=== PATIENT | female | born 1945 | race Two or more races ===

== ENCOUNTER 2019-08-04 11:08 | Outpatient (CLI) | payer OTHER | END 2019-08-04 12:07 | disposition home or self-care (01) | LOC: LAB 11:08 | DX: E78.2 Mixed hyperlipidemia (principal); E11.65 Type 2 diabetes mellitus with hyperglycemia; E11.22 Type 2 diabetes mellitus with diabetic chronic kidney disease; E11.21 Type 2 diabetes mellitus with diabetic nephropathy; Z12.11 Encounter for screening for malignant neoplasm of colon; N39.0 Urinary tract infection, site not specified; D68.8 Other specified coagulation defects; D64.89 Other specified anemias; E03.8 Other specified hypothyroidism; E55.9 Vitamin D deficiency, unspecified ==

== ENCOUNTER 2020-07-08 09:01 | Outpatient (CLI) | payer OTHER | END 2020-07-08 11:30 | disposition home or self-care (01) | LOC: LAB 09:01 | PROVIDERS: ATTEND Specialist | DX: M48.44 Fatigue fracture of vertebra, thoracic region (principal); M48.44XA Fatigue fracture of vertebra, thoracic region, initial encounter for fracture; J45.998 Other asthma; H25.011 Cortical age-related cataract, right eye; D68.8 Other specified coagulation defects; Z20.828 Contact with and (suspected) exposure to other viral communicable diseases; Z03.818 Encounter for observation for suspected exposure to other biological agents ruled out ==

== ENCOUNTER → 2020-08-08 11:58 | Outpatient (CLI) | payer OTHER | END | disposition home or self-care (01) | LOC: LAB 11:58 | PROVIDERS: ATTEND Ophthalmology | DX: Z03.818 Encounter for observation for suspected exposure to other biological agents ruled out (principal) ==

== ENCOUNTER 2020-11-08 11:59 | Outpatient (CLI) | payer OTHER | END 2020-11-08 12:05 | disposition home or self-care (01) | LOC: LAB 11:59 | PROVIDERS: ATTEND Specialist | DX: E78.2 Mixed hyperlipidemia (principal); K75.81 Nonalcoholic steatohepatitis (NASH) ==

== ENCOUNTER → 2021-02-06 12:15 | Outpatient (CLI) | payer OTHER | END | disposition home or self-care (01) | LOC: LAB 12:15 | PROVIDERS: ATTEND Specialist | DX: E11.21 Type 2 diabetes mellitus with diabetic nephropathy (principal); E03.8 Other specified hypothyroidism; D64.89 Other specified anemias; Z12.11 Encounter for screening for malignant neoplasm of colon; C16.8 Malignant neoplasm of overlapping sites of stomach ==

== ENCOUNTER 2021-02-10 12:17 | Outpatient (CLI) | payer OTHER | END 2021-02-10 12:21 | disposition home or self-care (01) | LOC: LAB 12:17 | PROVIDERS: ATTEND Specialist | DX: E03.8 Other specified hypothyroidism (principal); E11.21 Type 2 diabetes mellitus with diabetic nephropathy; Z12.11 Encounter for screening for malignant neoplasm of colon; C16.8 Malignant neoplasm of overlapping sites of stomach; D64.89 Other specified anemias ==

== ENCOUNTER 2022-07-15 06:10 | Outpatient (CLI) | payer OTHER | END 2022-07-15 06:11 | disposition home or self-care (01) | LOC: LAB 06:10 | PROVIDERS: ATTEND Specialist | DX: N39.9 Disorder of urinary system, unspecified (principal); E03.8 Other specified hypothyroidism; D64.89 Other specified anemias; E11.69 Type 2 diabetes mellitus with other specified complication; R19.5 Other fecal abnormalities; E11.21 Type 2 diabetes mellitus with diabetic nephropathy; M00.80 Arthritis due to other bacteria, unspecified joint; Z13.220 Encounter for screening for lipoid disorders ==

== ENCOUNTER 2022-07-20 16:14 | Outpatient (CLI) | payer OTHER | END 2022-07-20 16:25 | disposition home or self-care (01) | LOC: LAB 16:14 | PROVIDERS: ATTEND Specialist | DX: R19.5 Other fecal abnormalities (principal); D64.89 Other specified anemias; E11.69 Type 2 diabetes mellitus with other specified complication; E11.21 Type 2 diabetes mellitus with diabetic nephropathy; E03.8 Other specified hypothyroidism; N39.9 Disorder of urinary system, unspecified; Z13.220 Encounter for screening for lipoid disorders ==

== ENCOUNTER 2022-07-23 09:53 | Outpatient (CLI) | payer OTHER | END 2022-07-23 13:44 | disposition home or self-care (01) | LOC: MRI 09:53 | PROVIDERS: ATTEND Specialist | DX: G35 Multiple sclerosis (principal); I67.2 Cerebral atherosclerosis | CPT/HCPCS: 70553; Q9965 ==

== ENCOUNTER 2022-11-10 06:54 | Outpatient (CLI) | payer OTHER | END 2022-11-10 07:23 | disposition home or self-care (01) | LOC: LAB 06:54 | PROVIDERS: ATTEND Internal Medicine | DX: D64.9 Anemia, unspecified (principal); E11.9 Type 2 diabetes mellitus without complications; E78.00 Pure hypercholesterolemia, unspecified; N39.0 Urinary tract infection, site not specified; E03.8 Other specified hypothyroidism; R19.5 Other fecal abnormalities; Z12.11 Encounter for screening for malignant neoplasm of colon; E55.9 Vitamin D deficiency, unspecified ==

== ENCOUNTER 2022-12-04 07:54 | Outpatient (CLI) | payer OTHER | END 2022-12-04 07:56 | disposition home or self-care (01) | LOC: RAD 07:54 | PROVIDERS: ATTEND Internal Medicine | DX: M54.2 Cervicalgia (principal); M54.6 Pain in thoracic spine; M54.17 Radiculopathy, lumbosacral region ==